=== PATIENT | female | born 1965 | race Caucasian/White ===

== ENCOUNTER 2022-10-24 16:59 | Outpatient (CLI) | payer OTHER, SELFPAY ==
--- NOTE | 2022-10-24 16:45 | CRLHL7_ITS ---
For Patients: As a result of the Century Cures Act, medical imaging exams and procedure reports are released immediately into your electronic medical record. You may view this report before your referring provider. If you have questions, please contact your health care provider. INDICATION: Leg pain and swelling. TECHNIQUE: Ultrasound venous duplex lower left extremity. Compression venous exam was performed using diamond-scale, color Doppler, and spectral Doppler analysis. COMPARISON: None. FINDINGS: Deep veins: Sonographic imaging demonstrates the left common femoral, deep femoral, superficial femoral, popliteal, posterior tibial and the contralateral right common femoral veins to be fully compressible with normal color Doppler blood flow. Superficial veins: Greater saphenous vein is fully compressible. No popliteal cyst. IMPRESSION: Normal left lower extremity venous ultrasound, no sign of deep venous thrombosis. Dictated by Everton Alexis MD @ 10/24/2022 6:02:35 PM (Electronically Signed)
== END 2022-10-24 17:00 | disposition home or self-care (01) ==
LOC: US 16:59
PROVIDERS: Visit Provider Emergency Medicine
DX: M79.662 Pain in left lower leg (principal); R22.42 Localized swelling, mass and lump, left lower limb
CPT/HCPCS: 93971